=== PATIENT | male | born 1975 | race Caucasian/White ===

== ENCOUNTER 2016-07-29 16:52 | Inpatient (IN) ==
[2016-07-29] MEDS ORDERED: MOTRIN ONE (17:09)
[2016-07-29] MEDS ORDERED: MOTRIN PO ONE (17:11)
[2016-07-29 17:33] LABS: BASO% 0.2 % (0.0-0.8); EOS# 0.01 X1000 (0.0-0.7); EOS% 0.1 % (0.0-10.0); HEMATOCRIT 42.8 % (42.0-52.0); HEMOGLOBIN 14.4 g/dL (14.0-18.0); IMM GRAN# 0.06 X1000 (0.0-0.04); IMM GRAN% 0.3 % (0.0-0.5); LYMPH# 1.25 X1000 (1.2-3.4); LYMPH% 7.2 % (20.5-51.1); MANUAL DIFF NEEDED? YES; MCHC 33.6 g/dL (33-37); MCV 83.1 FL (81-99); MONO# 0.62 X1000 (0.11-0.59); MONO% 3.6 % (1.7-9.3); MPV 10.3 FL (7.4-10.4); NEUT% 88.6 % (42.2-75.2); PLT 248 X1000 (130-400); RBC 5.15 XMIL (4.7-6.1)
[2016-07-29] MEDS ORDERED: NS 1,000 ML IV ONE ×3 (17:35→19:52)
[2016-07-29 17:44] LABS: LYMPHS 9 % (21-51)
[2016-07-29 17:48] LABS: AGAP 12; ALBUMIN 3.8 g/dL (3.5-5.0); ALKALINE PHOSPHATASE 71 U/L (32-122); BUN 8 mg/dL (8-22); CALCIUM 8.8 mg/dL (8.8-10.2); CHLORIDE 97 mmol/L (98-107); COSMO 264; GOT 23 U/L (10-34); GPT 21 U/L (10-44); POTASSIUM 3.7 mmol/L (3.5-5.1); SODIUM 132 mmol/L (136-145); TCO2 22 mmol/L (25-35); TOTAL PROTEIN 7.7 g/dL (6.3-8.3)
--- NOTE | 2016-07-29 18:07 | Diag Imaging Result Document ---
PROCEDURE NAME: CHEST-2 VIEWS - 07/29/2016 FRONTAL AND LATERAL CHEST, TWO VIEWS: FINDINGS: The lungs are well expanded. The heart is not enlarged. The vessels are not distended. There are no infiltrates. No pleural effusions. IMPRESSION: No pneumonia.
[2016-07-29] MEDS ORDERED: VANCOMYCIN 1 GM/NS 1 GM/250 ML IVPB IV ONE (18:44)
[2016-07-29] MEDS ORDERED: MORPHINE IV PRN (19:52)
[2016-07-29] MEDS ORDERED: TYLENOL PO PRN (19:52)
[2016-07-29] MEDS ORDERED: ZOFRAN IV PRN (19:52)
[2016-07-29] MEDS: ZOSYN 3.375 GM/NS 3.375 GM/50 ML IVPB IV SCH (21:56)
[2016-07-30] MEDS: ZOSYN 3.375 GM/NS 3.375 GM/50 ML IVPB IV SCH ×4 (03:00→22:09)
[2016-07-30] MEDS: VANCOMYCIN 1 GM/NS 1 GM/250 ML IVPB IV SCH ×2 (07:00→19:18)
--- NOTE | 2016-07-30 11:36 | HISTORY AND PHYSICAL ---
PRIMARY CARE PHYSICIAN: None. CHIEF COMPLAINT: Right leg swelling and redness that began 2 to 3 days ago and progressively worsened. HISTORY OF PRESENTING ILLNESS: This is a 41-year-old male who presented to [facility] ER with complaints of his right leg swelling, redness, tenderness to touch, and difficulty to bear weight. He states that he was seen at [facility] yesterday and was placed on Bactrim DS twice a day, but he states that after he went there and he went home, the swelling increased. 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 While he was there, the redness increased and worsened, and so he came back home and brought a load home and then went to [place] yesterday. When he arrived to the emergency room, he was noted on his right upper thigh to have several areas that were scabbed over where he states that he had had a sore. They thought it was initially maybe an infected hair follicle. Those areas had scabbed over and were very small, but he has extensive erythema, edema, and warmth to the touch from his groin of his right leg, all the way down his calf, and tenderness to touch. No open draining wounds are noted at this time. His laboratory data showed a white blood cell count of 17.43. His sodium was 132. Preliminary lower extremity venous Doppler showed no blood clots, and so he was admitted to the medical unit for further evaluation and treatment. PAST MEDICAL HISTORY: Asthma. PAST SURGICAL HISTORY: A tendon replacement in his knee. FAMILY HISTORY: Noncontributory. SOCIAL HISTORY: He currently lives with family. Denies any tobacco, alcohol, or illicit drug use. ALLERGIES: He has no known drug allergies. HOME MEDICATIONS: He does not typically take anything on a routine basis, but again, yesterday he was given some naproxen 500 mg p.o. b.i.d. and Bactrim DS 1 p.o. b.i.d., both of which will be held at this time. DIAGNOSTIC DATA: His laboratory data showed a white blood cell count of 17.43, hemoglobin of 14.4, hematocrit 42.8, platelets of 248,000. Sodium of 132, potassium 3.7, chloride 97, CO2 of 22, BUN of 8, creatinine 1.1, glucose of 117. Plasma lactate was 1.1. Chest x-ray showed no pneumonia. Preliminary extremity venous study showed no DVT in the right leg. REVIEW OF SYSTEMS: He was positive for fever. Denied any blurred vision, dizziness, chest pain. He was positive for a nonproductive cough and some mild shortness of breath. Denied any constipation, diarrhea, burning or hurting with urination, and he is positive for pain to his right leg with movement. PHYSICAL EXAMINATION: VITAL SIGNS: On arrival, he had a temperature of 102 degrees, pulse was 131, respirations 24, blood pressure was 134/82, saturating 100% on room air. GENERAL: This is a 41-year-old male who is lying in the bed, answers questions appropriately. HEENT: Normocephalic and atraumatic. Pupils are equal, round, reactive to light. The extraocular movements are intact. Oropharynx and nares are clear. NECK: Supple. LUNGS: Clear to auscultation with equal lung expansion and chest wall movement. HEART: With regular rhythm, but is noted to be tachycardic, but no murmurs, rubs, or gallops. ABDOMEN: Soft, nontender, nondistended. Bowel sounds are present x4 quadrants. EXTREMITIES: His right leg is noted to have extensive erythema, edema, warmth to the touch from his right groin, all the way down his calf. No open wounds draining. He is noted to have several scabbed areas where it looks like he had an ingrown hair that he picked at. It is now scabbed over. NEUROLOGICAL: The cranial nerves 2 through 12 are grossly intact. ASSESSMENT: 1. Right leg cellulitis. 2. Leukocytosis. 3. Tachycardia. 4. Fever. PLAN: He has been admitted to the medical unit, placed on a healthy heart diet. We have obtained blood cultures x2, and those are pending. Placed on morphine 2 mg IV every 2 hours p.r.n., vancomycin 1 gram IV every 12 hours, and Zosyn 3.375 grams IV every 6 hours, Tylenol 650 p.o. every 6 hours p.r.n., and we will recheck a CBC and BMP in the a.m. Dictated by CLAUDETTE Dugan for Yoel Kaufman MD cc: CLAUDETTE Dugan MD
--- NOTE | 2016-07-30 15:33 | PROGRESS NOTE ---
DATE: 07/30/2016 SUBJECTIVE: Mr. Galvez is a 41-year-old male who got admitted last night because of swelling and redness of the right lower extremity. Of note, according to Mr. Galvez, he had knee surgery a couple of years ago and since then he has been having a problem with his leg. His right groin area even had a swollen lymph node, which was surgically removed in [address] Khan. The pathology on that only showed chronic active lymphadenitis and extensive granulomatous inflammation with scattered microabscesses. According to the patient, he gets very frequent cellulitis to the leg and then he gets antibiotics, it goes away, and then it comes right back. OBJECTIVE: Vital signs: Blood pressure is now 131/80, pulse of 101, respirations 18, temperature 98.3 degrees. General: Mr. Galvez is a 41-year-old male. He is in bed, not seemingly distressed. He is morbidly obese with a BMI over 45. HEENT: The mucosa is pink and moist. Anicteric. Acyanotic. Neck: Supple. Chest: Air entry is bilaterally reduced. There are still diffuse posterior crepitations. Cardiovascular: Regular rate and rhythm. Abdomen: Soft, nontender. Extremities: The right low extremity is swollen entirely and is warm. It is tender, more so to the thigh. I seen old surgical scars at the inguinal area consistent with previous lymph node removal. LABORATORY DATA: None for today, but yesterday white count was 17.43, mainly neutrophils of 91%. Chemistry is reviewed and unremarkable. ASSESSMENT: 1. Sepsis secondary to skin and soft tissue infection. 2. Right lower extremity cellulitis. 3. Possible acute on recurrent lymphangitis of the lower extremity. After the lymph nodes have been taken out, the leg is always swollen, but every now and then it gets wet, and I think this is due to lymphatic drainage having been compromised. 4. Bronchospasm, likely due to underlying chronic obstructive pulmonary disease/asthma that has not been diagnosed. 5. Morbid obesity. PLAN: We are going to continue with the current antibiotics, including Zosyn and vancomycin. We will put the patient on some nebulization p.r.n. We will get Infectious Disease to evaluate the patient, since he has been getting antibiotics every so often, to make sure that there is nothing that we are missing, and have a followup plan when he gets discharged. cc: Yoel Kaufman MD
[2016-07-30] MEDS: MORPHINE IV PRN ×2 (17:39→22:08)
[2016-07-31] MEDS: ZOSYN 3.375 GM/NS 3.375 GM/50 ML IVPB IV SCH ×3 (03:49→16:19)
[2016-07-31] MEDS: MORPHINE IV PRN ×3 (06:01→21:32)
[2016-07-31] MEDS: VANCOMYCIN 1 GM/NS 1 GM/250 ML IVPB IV SCH ×2 (06:01→18:42)
[2016-07-31 06:20] LABS: MANUAL DIFF NEEDED? NO
[2016-07-31 06:28] LABS: BASO% 0.4 % (0.0-0.8); EOS# 0.36 X1000 (0.0-0.7); EOS% 5.2 % (0.0-10.0); HEMATOCRIT 38.2 % (42.0-52.0); HEMOGLOBIN 12.6 g/dL (14.0-18.0); IMM GRAN# 0.02 X1000 (0.0-0.04); IMM GRAN% 0.3 % (0.0-0.5); LYMPH% 18.9 % (20.5-51.1); MCH 27.9 PG (27-31); MCV 84.5 FL (81-99); MONO# 0.62 X1000 (0.11-0.59); MPV 10.6 FL (7.4-10.4); NEUT% 66.2 % (42.2-75.2); PLT 246 X1000 (130-400); RBC 4.52 XMIL (4.7-6.1)
[2016-07-31 06:51] LABS: AGAP 12; BUN 9 mg/dL (8-22); CALCIUM 8.6 mg/dL (8.8-10.2); CHLORIDE 101 mmol/L (98-107); COSMO 275; POTASSIUM 3.9 mmol/L (3.5-5.1); SODIUM 137 mmol/L (136-145); TCO2 24 mmol/L (25-35)
--- NOTE | 2016-07-31 17:24 | PROGRESS NOTE ---
DATE: 07/31/2016 SUBJECTIVE: Today, Mr. Galvez referred to be doing a lot better. The leg swelling is improving. OBJECTIVE: Vital signs: Blood pressure is 150/82, pulse of 100, respirations 18, temperature 98.2 degrees. General: Mr. Galvez is a 41-year-old, male. He is in bed, not seemingly distressed. HEENT: Mucosa is pink and moist. Anicteric. Acyanotic. Neck: Supple. Chest: Air entry is bilaterally reduced. There is faint end-expiratory wheezing. Cardiovascular: Regular rate and rhythm. Abdomen: Soft, distended, but nontender. Bowel sounds are present. Extremities: The right lower extremity is swollen. It is warm. More redness to the proximal aspect than to the distal. There are also some old surgical scars at the right inguinal area. LABORATORY DATA: WBC is 6.89. Hemoglobin is 12.6. Platelet count of 246,000. Chemistry: Sodium 137, potassium is 3.9, chloride is 101, bicarb is 24, glucose is 144. ASSESSMENT: 1. Sepsis secondary to skin and soft tissue infection. This is improved. 2. Right lower extremity cellulitis. 3. Possible [id number] lymphangitis of the lower extremity. 4. Bronchospasm likely due to underlying chronic obstructive pulmonary disease/asthma. 5. Morbid obesity. PLAN: In general, I think Mr. Galvez is doing a lot better currently on Zosyn and vancomycin. We will also continue with the nebulization for the bronchospasm. The patient has been having this right lower extremity swelling and redness on and off for a while. We will put in a consultation for ID to evaluate the patient and make recommendation and also plan for followup. cc: Yoel Kaufman MD
[2016-07-31] MEDS ORDERED: LOTRIMIN 1% CREAM TOP SCH (21:00)
[2016-07-31] MEDS ORDERED: DOXYCYCLINE PO SCH (21:00)
--- NOTE | 2016-07-31 21:13 | CONSULTATION ---
DATE OF CONSULTATION: 07/31/2016 CONCLUSION: Patient is admitted the hospital with cellulitis in his right leg. In the past he has had what he called pimples on his right leg but he said he has never had anything like what he has now, namely that the leg is erythematous, swollen and tender. The patient appears to have some element of tinea pedis in both feet. RECOMMENDATIONS: I have switched the patient from vancomycin and Zosyn to Ancef IV and doxycycline p.o. Also I have ordered Lotrimin cream to be put between the toes of both feet twice a day. I discussed with the patient methods to prevent his cellulitis from recurring. I told him that he should use antifungal cream to put between the toes of his legs every 12 hours to treat any athlete's foot that is present. I told him that he should lose some weight and he should try to elevate his leg as much as possible. 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 Also I told him to avoid salt because it can cause fluid retention. I told the patient to diet and lose weight. My plan will be that his leg is better we can switch him to an oral regimen such as Keflex 500 mg p.o. every 8 hours and doxycycline 100 mg p.o. every 12 hours and then I will see the patient back in the office. He may be a candidate to be put on a long-term antibiotic to hopefully prevent an infection such as Keflex. PRESENT ILLNESS: The patient developed erythema and swelling of the right leg. He has been admitted to the hospital. A Doppler study of the right leg is pending. He is receiving vancomycin and Zosyn and he is staying off his leg. He says that his leg has gotten much better since he has been in the hospital. LABORATORY: The patient's studies thus far show a CBC with a white count of 6890, hemoglobin 12.6, and platelet count 246,000. Creatinine is 1. GFR is greater than 60. Liver function studies are normal. Blood culture is negative. Chest x-ray shows clear lungs. A Doppler study of the right leg is pending. PAST MEDICAL HISTORY/REVIEW OF SYSTEMS: Eyes and ears: Patient states he wears glasses and has decrease in his hearing. Neck: No stiffness. Respiratory: No cough, but he does have some wheezing. He does not complain of dyspnea. Cardiovascular: No chest pain or palpitations. GI: No nausea, vomiting, or diarrhea. Endocrine: Patient does not have diabetes or thyroid disease. Bones, joints, muscles: He does have swelling of both legs but the right is more so than the left. He has not been having any joint pain or myalgias. Neurologic: No motor, sensory loss. No seizure. Hematology: Patient does not have anemia or bleeding tendency. The remainder of the patient's review of systems was completed and was negative. PREVIOUS HOSPITALIZATIONS AND OPERATIONS: He has had surgery on his right knee, he has had a hernia repair, tonsillectomy, extraction of teeth and a right groin node biopsy. MEDICAL DISEASES: Positive for asthma and obesity. SURGICAL HISTORY: Positive for knee surgery, hernia repair, tonsillectomy, extraction of teeth and right groin node biopsy. FAMILY HISTORY: Is unknown by the patient. He is adopted. SOCIAL HISTORY: The patient lives with his family. He does not smoke cigarettes, drink alcoholic beverages or abuse drugs. He is . 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 He has cats and a dog for pets. He had been on . PHYSICAL EXAMINATION: Vital Signs: Temperature is 98.1 degrees, pulse 107, respirations 18, blood pressure 134/79. Patient weighs 292 pounds. Generally: This is an obese young male. He is in no acute distress. Head, eyes, ears, nose, and throat: He can hear my spoken words and see near objects. No drainage noted from the nose or ears. Neck: No meningismus. Lungs: Clear to auscultation. Cardiovascular: Regular heart rate. Abdomen: Soft and nontender. Extremities: The right leg was erythematous and extended into the thigh. According to the patient his right leg was less swollen and less erythematous than when he came in the hospital. Between the toes there were few areas of scaling. Neurologic: Patient is alert. He can move his extremities. There is no tremor. His sensation is intact to touch. His memory, as regarding his medical history was good. Thank you for the consult. cc: Lewis Dobbs MD
[2016-07-31] MEDS: DOXYCYCLINE PO SCH (21:31)
[2016-07-31] MEDS: KEFZOL 2 GM/D5W 2 GM/50 ML IVPB IV SCH (21:33)
[2016-07-31] MEDS: LOTRIMIN 1% CREAM TOP SCH (21:34)
[2016-08-01] MEDS: KEFZOL 2 GM/D5W 2 GM/50 ML IVPB IV SCH ×3 (02:51→21:50)
--- NOTE | 2016-08-01 07:16 | Extremity Venous Study ---
PROCEDURE NAME: Venous U/S Right Leg - 07/29/2016 RIGHT LOWER EXTREMITY VENOUS DOPPLER ULTRASOUND: FINDINGS: There is good flow and compressibility in the veins of the right lower extremity. No thrombus. Normal augmentation. There are small lymph nodes in the inguinal region. IMPRESSION: 1. No deep venous thrombosis in the right lower extremity. 2. Multiple small lymph nodes in the right inguinal region. A preliminary report was given at 6:18 PM.
[2016-08-01] MEDS: DOXYCYCLINE PO SCH ×2 (10:10→20:22)
[2016-08-01] MEDS: LOTRIMIN 1% CREAM TOP SCH (10:11)
[2016-08-01] MEDS: DUONEB (A & A) INH PRN (11:25)
--- NOTE | 2016-08-01 13:14 | PROGRESS NOTE ---
DATE: 08/01/2016 SUBJECTIVE: Patient states he is feeling better today. His leg swelling is improving. He denies any chest pain, shortness of breath, cough, fever, chills. OBJECTIVE: Vital Signs: Blood pressure is 136/79 with a heart rate of 80, respirations are 20, temperature is 97.9 degrees oral with oxygen saturations of 98-100%. Cardiovascular: Regular rate and rhythm. S1 and S2 are appreciated. Pulmonary: Breath sounds are clear with no increased work of breathing noted. He does have equal bilateral rise and fall of chest. Gastrointestinal: Abdomen is soft, nontender, nondistended with bowel sounds in all 4 quadrants. Extremities: Right lower extremity is erythematous which extends to the thigh. This is improving per the patient's report. He does have pulses palpable x4. Calves nontender. ASSESSMENT: 1. Sepsis secondary to skin and soft-tissue infection, improved. 2. Right lower extremity cellulitis. 3. Possible acute on recurrent lymphangitis of the lower extremity. 4. Bronchospasm likely underlying chronic obstructive pulmonary disease. 5. Morbid obesity. PLAN: Will continue cefazolin and doxycycline as per Dr. Dobbs' orders, Lotrimin cream between toes of both feet. We will continue with the gatch of the bed elevated to promote venous drainage. TEDs will be applied as per Dr. Dobbs' recommendation. Further treatments pending hospital course. Dictated by CLAUDETTE Cross for Dago Mckeon MD cc: CLAUDETTE Cross MD pt examined, continue iv abx, ct scan to rule out abscess APENOT MTDD
[2016-08-01] MEDS: MORPHINE IV PRN ×2 (15:13→21:49)
--- NOTE | 2016-08-01 17:34 | Diag Imaging Result Document ---
PROCEDURE NAME: FAITH SALDIVAR W/CONTRAST - 08/01/2016 CT OF THE RIGHT LEG WITH INTRAVENOUS CONTRAST: FINDINGS: There is some subcutaneous edema and skin thickening anterolaterally over the hip and upper thigh. There is a inguinal node which is rounded and apparently inflamed in appearance measuring 17-18 mm in diameter on image 212. Linear fluid collection is seen between the area of the fat plane between the rectus femoris and the hamstring groove and the skin, seen best on image 248. There is also some skin thickening generally and more so on the medial aspect, as well as stranding in the subcutaneous fat in the more caudal portion of the thigh. There is a fluid collection superficial to the lateral quadriceps muscles on the lateral side extending to just above the knee. There is a screw in the lateral portion of the distal femur. There is another screw in the tibia on the medial aspect. There is generalized subcutaneous edema over the calf. There is no evidence of a focal fluid collection to suggest an abscess. The possibility of cellulitis cannot be excluded. IMPRESSION: Edema and/or cellulitis as described.
[2016-08-02] MEDS: LASIX PO SCH ×2 (04:55→08:54)
[2016-08-02] MEDS: LOTRIMIN 1% CREAM TOP SCH ×3 (05:02→20:10)
[2016-08-02 06:28] LABS: AGAP 11; BUN 12 mg/dL (8-22); CALCIUM 8.9 mg/dL (8.8-10.2); CHLORIDE 103 mmol/L (98-107); COSMO 276; POTASSIUM 4.2 mmol/L (3.5-5.1); SODIUM 138 mmol/L (136-145); TCO2 24 mmol/L (25-35)
[2016-08-02 06:34] LABS: HEMATOCRIT 41.7 % (42.0-52.0); HEMOGLOBIN 13.8 g/dL (14.0-18.0); MCH 27.7 PG (27-31); MCHC 33.1 g/dL (33-37); MCV 83.7 FL (81-99); MPV 9.9 FL (7.4-10.4); RBC 4.98 XMIL (4.7-6.1)
[2016-08-02] MEDS: KEFZOL 2 GM/D5W 2 GM/50 ML IVPB IV SCH ×3 (06:38→21:56)
[2016-08-02] MEDS: MORPHINE IV PRN (06:43)
[2016-08-02] MEDS: DUONEB (A & A) INH PRN (08:13)
[2016-08-02] MEDS: DOXYCYCLINE PO SCH ×2 (08:54→20:10)
--- NOTE | 2016-08-02 08:54 | PROGRESS NOTE ---
DATE: 08/02/2016 SUBJECTIVE: Patient notes that his right leg is still swollen, still hurting, still painful, still having difficulty moving. Denies any fevers, chills. Denies any cough, congestion. PHYSICAL: Vital Signs: Temperature 97, pulse 91, respiratory 20, BP 150/89, 137/90, saturation 99% on room air. General: Patient is awake, alert, overweight male who is currently in no respiratory distress. Neck: Supple. CV: Regular rate, chest clear, nonlabored. Abdomen: Soft. Extremities: Moves all extremities, although he has a painful movement of his right lower extremity secondary to his recent diagnosis of cellulitis. Neurologic: No focal changes. Skin: He is noted to have erythema that extends from his ankle up to his groin area and to his mid thigh. He has good pulses throughout which warm to the touch. No drainage. The patient thinks it is not getting any better from the previous days. LABS: CT lower extremity demonstrates no true pocket or abscess. ASSESSMENT: 1. Cellulitis right lower extremity. Certainly feel as though due to the patient's report this could all be related back to his previous knee surgery and cadaver ACL replacement. He notes that he has had swelling in that extremity since the injury at work. He has had lymph nodes removed as well that thankfully were not cancerous. All of this is contributing to his current cellulitis and recurrent lymphangitis. At this point, sepsis appears to be resolved. 2. Leukocytosis, resolved. 3. Hyponatremia, resolved. PLAN: Dr. Dobbs changed his antibiotics yesterday to cefazolin, clotrimazole topical cream, and doxycycline. Certainly may need steroids in the future if his swelling does not improve. We will continue to follow. We will change his pain medication to Percocet as he notes that although morphine helps, it makes him groggy and confused. cc: Dante Regan MD
[2016-08-02] MEDS ORDERED: CHLORASEPTIC SPRAY MT PRN (14:27)
[2016-08-02] MEDS: PERCOCET-10 PO PRN (14:39)
[2016-08-03] MEDS: KEFZOL 2 GM/D5W 2 GM/50 ML IVPB IV SCH ×2 (05:56→18:23)
[2016-08-03 06:38] LABS: AGAP 8; BUN 14 mg/dL (8-22); CALCIUM 8.5 mg/dL (8.8-10.2); CHLORIDE 101 mmol/L (98-107); COSMO 273; POTASSIUM 3.8 mmol/L (3.5-5.1); SODIUM 136 mmol/L (136-145); TCO2 27 mmol/L (25-35)
[2016-08-03 07:00] LABS: HEMATOCRIT 41.5 % (42.0-52.0); HEMOGLOBIN 13.6 g/dL (14.0-18.0); MCH 27.6 PG (27-31); MCHC 32.8 g/dL (33-37); MCV 84.3 FL (81-99); MPV 9.7 FL (7.4-10.4); RBC 4.92 XMIL (4.7-6.1)
[2016-08-03] MEDS ORDERED: SOLU-MEDROL IV ONE (07:52)
[2016-08-03] MEDS ORDERED: KEFZOL 2 GM/D5W 2 GM/50 ML IVPB IV SCH (07:53)
[2016-08-03] MEDS: DUONEB (A & A) INH PRN (08:14)
--- NOTE | 2016-08-03 08:32 | PROGRESS NOTE ---
DATE: 08/03/2016 SUBJECTIVE: The patient notes that he is still having swelling of his right lower extremity but notes this is chronic in nature since his knee surgery some time ago. Denies any increased swelling. In fact, he thinks that the redness and erythema may be a little bit better. The pain is a little bit better but still is present. OBJECTIVE: Vital signs: Temperature 98, pulse 78, respiratory 20, BP 113/54, saturation 97% on room air. General: Patient is an awake, alert, oriented, obese male who is currently in no respiratory distress. He is pleasant to talk with. Neck: Supple. CV: Regular rate. Chest: Clear. Abdomen: Soft. Extremities: Moves all extremities. Skin: He is noted to have decreased erythema and decreased warmth of his right thigh. LABS: CBC and CMP normal. ASSESSMENT: 1. Leukocytosis, resolved. 2. Sepsis, resolved. 3. Right lower extremity cellulitis, improved. 4. Recurrent lymphangitis right lower extremity, stable. 5. Morbid obesity, certainly contributing to his cellulitis. PLAN: We will give him 1 dose of Solu-Medrol this morning for the itching and see if this will help. Will change him over to Keflex and doxycycline. Hopefully home later this afternoon or certainly by tomorrow. We will continue OxyContin for pain. cc: Dante Regan MD
[2016-08-03] MEDS: KEFLEX PO SCH ×2 (08:47→13:33)
[2016-08-03] MEDS: LASIX PO SCH (08:47)
[2016-08-03] MEDS: DOXYCYCLINE PO SCH ×2 (08:47→21:10)
[2016-08-03] MEDS: LOTRIMIN 1% CREAM TOP SCH ×2 (08:55→21:11)
[2016-08-03] MEDS ORDERED: NS 1,000 ML IV ONE (14:35)
[2016-08-03] MEDS: PERCOCET-10 PO PRN ×2 (17:31→23:53)
[2016-08-03] MEDS ORDERED: NS 1,000 ML IV SCH (18:16)
[2016-08-04] MEDS: LOTRIMIN 1% CREAM TOP SCH ×2 (00:18→09:05)
[2016-08-04] MEDS: KEFZOL 2 GM/D5W 2 GM/50 ML IVPB IV SCH (01:14)
[2016-08-04] MEDS ORDERED: NS 1,000 ML IV SCH (08:15)
--- NOTE | 2016-08-04 08:34 | PROGRESS NOTE ---
DATE: 08/04/2016 SUBJECTIVE: The patient notes his thigh still hurts. He is still having some swelling and redness. He is uncertain if it is better. He states that he had a fever yesterday up to 99. Notes that this is a fever for him. PHYSICAL: Temperature 98, pulse 91-111, respiratory 12-18, BP 118/64. Saturation 96% on room air. General: The patient is awake, alert, currently in no respiratory distress. He is sitting up in the bed. HEENT: Normocephalic. Neck: Supple. CV: Regular rate. Chest clear. Abdomen: Soft. Extremities: Moves all extremities. Neurologic: No changes. Skin: He is noted to have erythema and edema to his right thigh, although both appear better. The patient has finally acquiesced to wearing a compression stocking which currently is in place. LABORATORY DATA: CBC and CMP essentially normal. ASSESSMENT: 1. Sepsis, resolved. 2. Right lower extremity cellulitis, improved. 3. Morbid obesity. 4. Lymphedema in the right lower extremity. PLAN: We will continue patient on antibiotics. We will attempt to policy change clerk to p.o. antibiotics today and see how he does. Hopefully, the patient will be feeling better and can be discharged home later this afternoon. cc: Dante Regan MD
[2016-08-04] MEDS: DOXYCYCLINE PO SCH (09:05)
[2016-08-04] MEDS: KEFLEX PO SCH ×2 (09:05→14:17)
[2016-08-04] MEDS: LASIX PO SCH (09:05)
[2016-08-04 14:43] VITALS: BP 134/70
--- NOTE | 2016-08-06 16:16 | DISCHARGE SUMMARY ---
ADMISSION DATE: 07/29/2016 DISCHARGE DATE: 08/04/2016 DIAGNOSES: 1. Sepsis, resolved. 2. Right lower extremity cellulitis. 3. Morbid obesity. 4. Lymphedema in the right lower extremity. DIAGNOSTICS: On 08/01/2016, CT of the right leg revealed edema and/or cellulitis. Right lower extremity venous Doppler revealed no deep vein thrombosis. Blood cultures x2 sets revealed no growth. HOSPITAL COURSE: Mr. Galvez was admitted with right lower extremity cellulitis. He was found have a white blood cell count of 17.4. He was treated with vancomycin for antibiotic coverage and then transitioned to Kefzol and doxycycline, per Dr. Lewis Dobbs of Infectious Disease. Thankfully, he did improve and was able to be transitioned to Keflex p.o. q.6 hours. DISCHARGE PHYSICAL EXAMINATION: Cardiovascular: Regular rate and rhythm. S1 and S2 appreciated. Pulmonary: Breath sounds are clear, with no increased work of breathing noted. Gastrointestinal: Abdomen is soft, nontender, and nondistended, with bowel sounds in all 4 quadrants. Extremities: Right lower extremity edematous Neurologic: He is alert and oriented x3, with cranial nerves 2-12 grossly intact. Discharge Vital Signs: Blood pressure is 134/70 with a heart rate of 88. Respirations are 16. Temperature is 98.5 degrees oral with room air saturation of 99%. DISCHARGE MEDICATIONS: Naprosyn 500 b.i.d., Percocet 10/325 q.4 hours p.r.n., doxycycline 100 mg p.o. b.i.d., Keflex 500 mg p.o. t.i.d. and he is to take these for 2 weeks. FOLLOWUP: 1. Dr. Lewis Dobbs on 08/18/2016 at 8:30. 2. Follow up with his PCP in 1-2 weeks. DISPOSITION: He is being discharged home in stable condition with family members. TIME SPENT: This was a greater than 30-minute discharge. Dictated by CLAUDETTE Cross for Dante Regan MD cc: CLAUDETTE Cross MD [facility]
--- NOTE | 2016-08-11 02:24 | PROVIDER DOCUMENTATION ---
This chart was entered by Daisy Haynes Scribe, acting as scribe for Poncho Montoya MD. HPI-Rash/Wound/ReCheck <Kavin Yarbrough - Last Filed: 07/29/16 19:50> - General Source: patient - History of Present Illness-Dermatology Location: reports: upper extremity (R), lower extremity (R) Quality: reports: painful, stinging Onset/Duration: reports: 24 hours ago Timing: reports: still present Context/Associated Symptoms: reports: other (R leg) Identifiable cause?: No Locality of Occurance: Home Similar Symptoms Previously?: Yes Recently seen or treated by another doctor?: No <Poncho Montoya - Last Filed: 08/11/16 02:24> - General Chief Complaint: Sores/Lesions Stated Complaint: EXTREMITY PAIN Time Seen by Provider: 07/29/16 17:23 Allergies/Adverse Reactions: Allergies Allergy/AdvReac Type Severity Reaction Status Date / Time No Known Allergies Allergy Verified 01/17/15 18:00 Home Medications: Home Medication List Medication Instructions Recorded Confirmed Last Taken Type Naproxen 500 mg PO BID PRN #20 tablet 01/17/15 07/29/16 Unknown Rx CephALEXIN [Keflex] 500 mg PO TID #42 capsule 08/03/16 Unknown Rx Doxycycline 100 mg PO BID #28 tablet 08/03/16 Unknown Rx Oxycodone/APAP 10 mg/325 mg 1 each PO Q4H PRN PRN #30 tablet 08/03/16 Unknown Rx [Percocet-10] - History of Present Illness-Dermatology Nature of Presenting Problem: Pt is 41 y/o M presents to the ED with R leg swelling and redness. Pt states redness started yesterday. Pt states pain, swelling and redness has worsened. Pt states F. (Daisy Haynes) Pt is 41 y/o M presents to the ED with R leg swelling and redness. Pt states redness started yesterday. Pt states pain, swelling and redness has worsened. Pt states F. (Poncho Montoya) Review of Systems - Adult - REVIEW OF SYSTEMS - ADULT Constitutional: reports: fever. denies: chills Eyes: reports: no symptoms reported Ears, Nose, Mouth & Throat: reports: no symptoms reported Cardiovascular: reports: irregular heart rate (tachy). denies: chest pain, heart murmur Respiratory: reports: no symptoms reported Gastrointestinal: reports: no symptoms reported Genitourinary: reports: no symptoms reported Musculoskeletal: reports: no symptoms reported Integumentary: reports: skin sores/ulcer (R thigh), other (redness to R leg). denies: hives, itching, rash Neurological: reports: no symptoms reported Psychiatric: reports: no symptoms reported Endocrine: reports: no symptoms reported Hematologic/Lymphatic: reports: no symptoms reported Allergic/Immunologic: reports: no symptoms reported All Other Systems: Reviewed and Negative <Poncho Montoya - Last Filed: 08/11/16 02:24> Past History - Adult - PAST MEDICAL HISTORY-ADULT Review of Records: reports: Nursing Assessment Review, Medications Reviewed, Social history reviewed & non-contributory. Major Childhood Illnesses: reports: denies history Cardiovascular: reports: denies history Respiratory: reports: asthma Gastrointestinal: reports: denies history Obstetrical/Gynecological: reports: denies history Genitourinary: reports: denies history Musculoskeletal: reports: denies history Neurological: reports: denies history Endocrine/Immune: reports: denies history Other Conditions: reports: denies history - PRIOR SURGERIES/PROCEDURES Surgical/Procedure History: reports: orthopedic (extremity), other (Knee surgery repair and tendon replacement) - IMMUNIZATION STATUS Childhood Immunizations: See Nurse Assessment Flu Vaccine: See Nurse Assessment - FAMILY HISTORY Family History: reviewed, not pertinent - SOCIAL HISTORY Smoking: denies Substance Use: denies Living Situation: family <Poncho Montoya - Last Filed: 08/11/16 02:24> Physical Exam-General - PHYSICAL EXAM-ADULT Initial Vital Signs Reviewed: Yes - CONSTITUTIONAL General Appearance: appears well, alert, no apparent distress - EYES Eyes: PERRL/EOMI, pink conjunctivae - HEAD, EARS, NOSE, MOUTH & THROAT HENMT: normocephalic/atraumatic, moist mucous membranes, normal ENT inspection, TMs normal, pharynx normal - NECK Neck: non-tender, full range of motion, supple, normal inspection - RESPIRATORY Respiratory: chest non-tender, lungs clear, normal breath sounds, no pleuratic chest pain, no respiratory distress, no accessory muscle use - CARDIOVASCULAR Cardiovascular: normal peripheral pulses, no edema, no gallop, no JVD, no murmur , tachycardia - GASTROINTESTINAL (ABDOMEN) Abdominal Exam: normal bowel sounds, non tender, soft, no organomegaly, no pulsatile mass - LYMPHATIC Lymphatic: no adenopathy - MUSCULOSKELETAL Back Exam: normal inspection, no CVA tenderness, no vertebral tenderness Extremity: normal range of motion, erythema (R leg), swelling (R leg), tenderness (R leg). negative: normal gait, no pedal edema, deformity Peripheral Pulses: dorsalis-pedis (R): 2+, dorsalis-pedis (L): 2+ - SKIN Integumentary: erythema (R leg), swelling (R leg), tenderness (R leg), warm (R leg) - NEUROLOGIC Neurologic: grossly normal - PSYCHIATRIC Psych/Mental Status: normal mood/affect, oriented x 3 <Poncho Montoya - Last Filed: 08/11/16 02:24> Progress - PLAN OF CARE/RESULTS Result Diagrams: 07/29/16 17:20 07/29/16 17:20 - ULTRASOUND (By Radiology) 1 US Study: Lower Ext US Results: No clot per tech - CONSULTS/PCP/HOSPITALIST Notification #1 *Consult/PCP/Hospitalist*: Dr. Kaufman Time Discussed: 19:50 Reason/Comments: Admission Consult Disposition: Admit <Kavin Yarbrough - Last Filed: 07/29/16 19:50> - PLAN OF CARE/RESULTS Result Diagrams: 08/03/16 05:50 08/03/16 05:50 - CHANGE OF SHIFT REPORT (ED Provider) Report Given and Care Transferred to:: Flo Yarbrough NP Time of Transfer: 17:37 Items Pending: Labs, XRAY Results <Poncho Montoya - Last Filed: 08/11/16 02:24> - PLAN OF CARE/RESULTS Progress/Plan/Lab Results: Orders Category Date Time Status Admit - [facility] Routine AdmDCTranf 07/29/16 19:52 Ordered Activity - Bed Rest with BRP ORDERED Care 07/29/16 19:52 Active Saline Loc DIRECTED Care 07/29/16 19:52 Completed Vital Signs Order ROUTINE Care 07/29/16 19:52 Completed Heart Healthy Diet Diet 07/30/16 07:00 Completed CHEST-2 VIEWS [RAD] Stat Exams 07/29/16 17:12 Completed BLOOD CULTURE [BLDCUL] Stat Lab 07/29/16 18:18 Completed CBC WITH DIFF [HEME] Stat Lab 07/29/16 17:20 Completed COMPREHENSIVE METABOLIC PANEL [CHEM] Stat Lab 07/29/16 17:20 Completed LACTATE, PLASMA [CHEM] Stat Lab 07/29/16 17:20 Completed 0.9% Sodium Chloride Inj [Ns] 1,000 ml Med 07/29/16 19:52 Discontinued IV 125 mls/hr 0.9% Sodium Chloride Inj [Ns] 1,000 ml Med 07/29/16 17:35 Discontinued IV 999 mls/hr 0.9% Sodium Chloride Inj [Ns] 1,000 ml Med 07/29/16 18:45 Discontinued IV 999 mls/hr Acetaminophen [Tylenol] Med 07/29/16 19:52 Discontinued 650 mg PO Q6H PRN PRN Ibuprofen [Motrin] Med 07/29/16 17:09 Discontinued 600 mg .ROUTE .STK-MED ONE Ibuprofen [Motrin] Med 07/29/16 17:11 Discontinued 600 mg PO NOW ONE Morphine Med 07/29/16 19:52 Discontinued 2 mg IV Q2H PRN PRN Ondansetron [Zofran] Med 07/29/16 19:52 Discontinued 4 mg IV Q4H PRN PRN Piperacil/Tazobact 3.375 gm/Ns [Zosyn 3.375 gm/Ns] Med 07/29/16 20:00 Discontinued 3.375 gm in 50 ml IV Q6H Vancomycin 1 gm/Ns Med 07/29/16 18:44 Discontinued 1 gm in 250 ml IV NOW Vancomycin 1 gm/Ns Med 07/30/16 07:00 Discontinued 1 gm in 250 ml IV Q12H Venous U/S Right Leg Stat Ther 07/29/16 17:32 Completed Transfer/Admit Order [TRANSFER] Routine Transfer 07/29/16 19:55 Completed Discussed results and plan of care with patient. Patient agrees with plan and verbalizes understanding. (Kavin Yarbrough) Departure - Departure Time of Disposition Decision: 19:51 Certified Medical Emergency: Emergent - Critical Care Note This patient required my direct & personal management of CC.: Yes <Kavin Yarbrough - Last Filed: 07/29/16 19:50> - Departure Time of Disposition Decision: 19:51 Certified Medical Emergency: Emergent - Critical Care Note This patient required my direct & personal management of CC.: No <Poncho Montoya - Last Filed: 08/11/16 02:24> - Departure DIAGNOSIS: Cellulitis Qualifiers: Site of cellulitis: unspecified site Qualified Code(s): L03.90 - Cellulitis, unspecified Disposition: ADMITTED INPATIENT 09 Condition: Stable Attestation - Physician/ BRENDEN Attestation Patient care was provided by Advanced Practice Provider:: Yes Advanced Practice Provider:: Kavin Yarbrough Advanced Practice Provider documentation review:: The Mid-level provider documentation, treatment plan and medical decision making was reviewed by the physician who agrees with all treatment and medical decision making by the MLP. <Kavin Yarbrough - Last Filed: 07/29/16 19:50> This chart was documented by the indicated scribe, (Daisy Haynes Scribe) and accurately reflects the services I performed and decisions made by me, Poncho Montoya MD, as attested by the provider's signature.
== END 2016-08-04 19:34 | disposition home or self-care (01) ==
LOC: P.ED 16:52 → P.MEDSURG 20:40 → SUATTDRO 20:40
PROVIDERS: ATTEND Family Medicine